=== PATIENT | male | born 1970 | race Caucasian/White ===

== ENCOUNTER 2019-11-02 12:06 | Emergency (ER) | payer MEDICAID, OTHER ==
[~2019-11-02] VITALS: Ht 182.9 cm; Wt 122.7 kg
[2019-11-02 12:24] VITALS: BP 169/109
[2019-11-02] MEDS ORDERED: HYDR28CR14 TOP (12:58)
== END 2019-11-02 13:16 | disposition home or self-care (01) ==
LOC: ER 12:07
DX: L23.9 Allergic contact dermatitis, unspecified cause (principal); K40.90 Unilateral inguinal hernia, without obstruction or gangrene, not specified as recurrent; Z79.899 Other long term (current) drug therapy
CPT/HCPCS: 99282

== ENCOUNTER 2020-04-03 10:43 | Emergency (ER) | payer MEDICAID ==
[~2020-04-03] VITALS: Ht 182.9 cm; Wt 119.0 kg
[~2020-04-03 10:43] MED LIST: HYDR28CR14 TOP
[2020-04-03 10:59] VITALS: BP 138/106
[2020-04-03 12:13] LABS: BASOPHILS % (AUTO) 0.6 % (0-1); EOSINOPHILS # (AUTO) 0.2 X10'3 (0-0.9); EOSINOPHILS % (AUTO) 2.3 % (0-6); HEMOGLOBIN 15.8 g/dl (14.0-17.9); LYMPHOCYTES # (AUTO) 1.2 X10'3 (1.1-4.8); LYMPHOCYTES % (AUTO) 16.9 % (21-51); MEAN CORPUSCULAR HEMOGLOBIN 31.4 PG (27.0-31.0); MEAN CORPUSCULAR HGB CONC 33.7 g/dL (33.0-36.5); MEAN PLATELET VOLUME 7.9 FL (7.4-10.4); MONOCYTES # (AUTO) 0.7 X10'3 (0-0.9); MONOCYTES % (AUTO) 9.4 % (2-12); NEUTROPHILS # (AUTO) 5.1 X10'3 (1.8-7.7); NEUTROPHILS % (AUTO) 70.8 % (42-75); PLATELET COUNT 315 X10'3 (140-440); RED BLOOD COUNT 5.05 X10'6 (4.70-6.10); WHITE BLOOD COUNT 7.1 X10'3 (4.5-11.0)
[2020-04-03 12:23] LABS: ALANINE AMINOTRANSFERASE 47 U/L (12-78); ALBUMIN 3.6 G/DL (3.4-5.0); ALBUMIN/GLOBULIN RATIO 0.9 (1.1-1.5); ALKALINE PHOSPHATASE 95 IU/L (46-116); ANION GAP 4 (8-16); ASPARTATE AMINO TRANSFERASE 20 U/L (10-37); BILIRUBIN,TOTAL 0.8 MG/DL (0.1-1.0); BLOOD UREA NITROGEN 15 MG/DL (7-18); BUN/CREATININE RATIO 13.4 (5.4-32.0); CHLORIDE 104 MMOL/L (99-107); CREATININE 1.12 MG/DL (0.60-1.10); GLUCOSE 274 MG/DL (70-104); POTASSIUM 4.2 MMOL/L (3.5-5.1); SODIUM 140 MMOL/L (135-145); TOTAL CARBON DIOXIDE 31.8 MMOL/L (24-32); TOTAL PROTEIN 7.5 G/DL (6.4-8.2); eGFR 69 ML/MIN
[2020-04-03 12:33] LABS: ETHANOL < 0.010 GM/DL (0.0-0.010)
--- NOTE | 2020-04-03 12:38 | NUR ---
PT WALKED OUT OF THE ROOM AND STATED THAT "I AM LEAVING ".ISABEL MILLS TRIED TO CONVINCE THE PT NOT TO LEAVE FOR FUTHER WORKUP ,PT REFUSED STARTED WALKING OUT ,CALLED ARNALDO CARREON STATED THAT PT IS NOT ON HOLD MISAEL LET THE PT WALKED OUT OF RE .PT LFT WITH WITH BELONGING IN STABLE CONDITION.
== END 2020-04-03 12:48 | disposition left against medical advice (07) ==
LOC: ER 10:44
DX: R44.0 Auditory hallucinations (principal); Z88.0 Allergy status to penicillin; Z79.899 Other long term (current) drug therapy
CPT/HCPCS: 36415; 80053; 80320; 84443; 85025; 99283

== ENCOUNTER 2020-10-13 21:41 | Emergency (ER) | payer MEDICAID ==
[~2020-10-13] VITALS: Ht 182.9 cm; Wt 136.4 kg
[2020-10-13 22:31] LABS: BASOPHILS % (AUTO) 0.6 % (0-1); EOSINOPHILS # (AUTO) 0.2 X10'3 (0-0.9); EOSINOPHILS % (AUTO) 2.5 % (0-6); HEMATOCRIT 45.6 % (42.0-52.0); HEMOGLOBIN 15.5 g/dl (14.0-17.9); LYMPHOCYTES # (AUTO) 0.9 X10'3 (1.1-4.8); LYMPHOCYTES % (AUTO) 14.6 % (21-51); MEAN CORPUSCULAR HEMOGLOBIN 31.2 PG (27.0-31.0); MEAN CORPUSCULAR VOLUME 91.6 FL (78-98); MEAN PLATELET VOLUME 8.5 FL (7.4-10.4); MONOCYTES % (AUTO) 15.7 % (2-12); NEUTROPHILS # (AUTO) 4.2 X10'3 (1.8-7.7); NEUTROPHILS % (AUTO) 66.6 % (42-75); PLATELET COUNT 271 X10'3 (140-440); RED BLOOD COUNT 4.98 X10'6 (4.70-6.10); RED CELL DISTRIBUTION WIDTH 13.2 % (11.5-14.5); WHITE BLOOD COUNT 6.4 X10'3 (4.5-11.0)
[2020-10-13 22:54] LABS: ALANINE AMINOTRANSFERASE 63 U/L (12-78); ALBUMIN 3.3 G/DL (3.4-5.0); ALBUMIN/GLOBULIN RATIO 0.9 (1.1-1.5); ALKALINE PHOSPHATASE 94 IU/L (46-116); ANION GAP 9 (8-16); ASPARTATE AMINO TRANSFERASE 30 U/L (10-37); BILIRUBIN,TOTAL 0.3 MG/DL (0.1-1.0); BLOOD UREA NITROGEN 23 MG/DL (7-18); BUN/CREATININE RATIO 20.7 (5.4-32.0); CALCIUM 7.7 MG/DL (8.5-10.1); CHLORIDE 102 MMOL/L (99-107); CREATININE 1.11 MG/DL (0.60-1.10); POTASSIUM 4.3 MMOL/L (3.5-5.1); SODIUM 135 MMOL/L (135-145); TOTAL CARBON DIOXIDE 23.9 MMOL/L (24-32); eGFR 70 ML/MIN
[2020-10-13 22:57] LABS: GLUCOSE 499 MG/DL (70-104)
[2020-10-13] MEDS ORDERED: normal saline 1000ml 1,000 ML IV ONE ×2 (23:10)
[2020-10-13 23:17] LABS: TOTAL CELLS COUNTED 100
[2020-10-13 23:18] LABS: BANDS% (MANUAL) 1 % (0-10); EOSINOPHILS % (MANUAL) 1 % (0-6); LYMPHOCYTES % (MANUAL) 15 % (21-51); MONOCYTES % (MANUAL) 7 % (2-12); NEUTROPHILS % (MANUAL) 76 % (42-75); PLATELET ESTIMATE NORMAL
[2020-10-13] MEDS ORDERED: insulin regular, human 10 units/0.1 ml syringe IV ONE (23:50)
[2020-10-13 23:51] LABS: CLARITY,URINE CLEAR (Clear); COLOR,URINE YELLOW (Yellow); GLUCOSE, URINE >=1000 mg/dl (Neg); KETONES,URINE TRACE mg/dl (Neg); LEUKOCYTE ESTERASE ,URINE NEGATIVE (Neg); NITRITES, URINE NEGATIVE (Neg); OCCULT BLOOD,URINE NEGATIVE (Neg); PROTEIN,URINE NEGATIVE (Neg); UROBILINOGEN,URINE 0.2 E.U/dL (0.2-1.0)
[2020-10-13 23:52] LABS: UA COLLECTION TYPE VOIDED
[2020-10-13 23:58] LABS: URINE AMPHETAMINE SCREEN NEGATIVE (Neg); URINE BARBITUATE SCREEN NEGATIVE (Neg); URINE BENZODIAZEPINES SCREEN NEGATIVE (Neg); URINE CANNABINOID SCREEN NEGATIVE (Neg); URINE COCAINE SCREEN NEGATIVE (Neg); URINE METHADONE SCREEN NEGATIVE (Neg); URINE OPIATE SCREEN NEGATIVE (Neg); URINE PHENCYCLIDINE SCREEN NEGATIVE (Neg)
[2020-10-14 00:16] LABS: BACTERIA,URINE NONE SEEN /HPF (Neg); RBC,URINE NONE SEEN /HPF (0-2); SQUAMOUS EPITHELIAL CELL,UR FEW /LPF (FEW); WBC,URINE NONE SEEN /HPF (0-4)
[2020-10-14] MEDS ORDERED: QUET50TA24 PO (01:30)
[2020-10-14] MEDS ORDERED: EMPA10TA PO (01:30)
[2020-10-14] MEDS ORDERED: acetaminophen 325mg tablet PO ONE ×2 (03:45→19:00)
--- NOTE | 2020-10-14 04:54 | NUR ---
pt appears to be sleeping peacefully on right side in bernal 16 bed. no s/s respiratory distress at this time.
--- NOTE | 2020-10-14 07:34 | NUR ---
PACKET FAXED TO [facility]
[2020-10-14] MEDS: QUEtiapine 25mg tablet PO SCH ×2 (08:31→20:37)
--- NOTE | 2020-10-14 14:11 | NUR ---
pt covid test came back positive. [facility] was looking at placement for him. Lencho HERNANDEZ at [facility] called and informed of this. Pt to be moved to ED main bed 7
--- NOTE | 2020-10-14 14:38 | NUR ---
on airborne precaution.
--- NOTE | 2020-10-14 14:38 | NUR ---
patient received in room 7.
--- NOTE | 2020-10-14 17:54 | NUR ---
patient reports history of cutting himself,does not report SI at this time,also states" i don't hear voices right now".Patient cont.on airborne precaution due to covid.
--- NOTE | 2020-10-14 19:35 | NUR ---
Patient resting in his stretcher- layinig on his side. Provided with tylenol as he states he has body aches. Also given full pitcher of water. Waiting to recieve dinner tray from dietary.
--- NOTE | 2020-10-14 20:46 | NUR ---
Patient has been calm and cooperative- encouraged to try to rest, head of the bed lowered.
--- NOTE | 2020-10-14 23:24 | NUR ---
RELIEVING RN FOR BREAK, PT IS SLEEPING QUIETLY ON BED
--- NOTE | 2020-10-15 03:30 | NUR ---
Patient provided with tyelnol per request and more water. Snack also brought to bedside. Patient has been complaining of body aches. Even and unlabored respirations, calm and cooperative.
[2020-10-15] MEDS: acetaminophen 325mg tablet PO PRN ×5 (03:33→23:23)
[2020-10-15] MEDS: QUEtiapine 25mg tablet PO SCH ×2 (11:00→19:33)
--- NOTE | 2020-10-15 11:00 | NUR ---
PT REQUESTED TYLENOL FOR MUSCLE PAIN. PT MEDICATED LATE D/T ACUITY OF INCOMING PT.
--- NOTE | 2020-10-15 11:55 | NUR ---
PT IS SLEEPING COMFORTABLY ON GURNEY. EASILY AWAKENS. EQUAL RISE AND FALL OF CHEST.
[2020-10-16] MEDS: acetaminophen 325mg tablet PO PRN ×3 (03:05→20:40)
[2020-10-16] MEDS: QUEtiapine 25mg tablet PO SCH ×2 (08:29→20:40)
--- NOTE | 2020-10-16 14:59 | NUR ---
Pt hiting the wall screaming he wants to eat and increase voice in his head to hurt someone. Md Lin notified and PRN ordered. Dietary contacted and will send a tray
[2020-10-16] MEDS: OLANZapine 5mg rapidly disint. tablet PO PRN (15:07)
--- NOTE | 2020-10-16 15:18 | NUR ---
First interaction with pt. Meal and Zyprexa given, pt cooperative at this time
--- NOTE | 2020-10-16 18:43 | NUR ---
Spoke with [facility] office and requested the patient be re-evaluated. The patient has been denying suicidal thoughts for the past 24 hours.
--- NOTE | 2020-10-16 20:50 | NUR ---
[facility] has evaluated the patient but felt the patient was not yet safe to discharge to home. Spoke H credit charge authorizer and requested a mental health medication evaluation. The patient can not be transferred to an acute facility 2nd to being covid positive.
--- NOTE | 2020-10-16 22:41 | NUR ---
Pt apparently frequently agitated throughout the day per dayshift RN and tech. Having multiple outbursts. Consult today with [facility] who came and evaluated pt. for possible discharge home with brother. Pt. had another outburst ("get out of here, leave me alone!!!!") during consult. [facility] will return tomorrow AM for another eval and renew [address] hold if necessary
--- NOTE | 2020-10-17 07:03 | NUR ---
patient appears to be sleeping, no signs/symptoms of distress
[2020-10-17] MEDS: QUEtiapine 25mg tablet PO SCH ×2 (08:29→20:05)
[2020-10-17] MEDS: acetaminophen 325mg tablet PO PRN ×2 (08:34→18:41)
--- NOTE | 2020-10-17 10:16 | NUR ---
ATE 100% OF BREAKFAST. NOW RESTING QUIETLY.
[2020-10-17] MEDS: OLANZapine 5mg rapidly disint. tablet PO PRN (16:03)
--- NOTE | 2020-10-18 05:20 | NUR ---
Pt slept thru night from at least 2230 hours
[2020-10-18] MEDS: OLANZapine 5mg rapidly disint. tablet PO PRN ×3 (08:15→21:07)
[2020-10-18] MEDS: acetaminophen 325mg tablet PO PRN (08:15)
[2020-10-18] MEDS: QUEtiapine 25mg tablet PO SCH ×2 (08:15→21:07)
--- NOTE | 2020-10-18 21:00 | NUR ---
PT HAD AN OUTBURST, HE IS IN THE ROOM TALKING TO HIMSELF AND WANTS TO LEAVE, WANTS HIS CLOTHES.
--- NOTE | 2020-10-18 21:11 | NUR ---
pt standing in room, verbalizing hallucination, throwing bedside furniture and yelling at said voices. pt appears agitated and requesting medication. gave pt scheduled seroquel and zyprexa early due to displayed behavior.
--- NOTE | 2020-10-19 06:53 | NUR ---
PATIENT RESTING QUIETLY, APPEARS TO BE SLEEPING. NO SIGN/SYMPTOMS OF DISTRESS.
[2020-10-19] MEDS: QUEtiapine 25mg tablet PO SCH (09:44)
[2020-10-19 09:45] VITALS: BP 135/86
--- NOTE | 2020-10-19 14:19 | NUR ---
Patient resting quietly, no signs/symptoms of distress. Lunch tray at bedside.
[2020-10-19] MEDS: OLANZapine 5mg rapidly disint. tablet PO PRN (18:42)
--- NOTE | 2020-10-19 18:45 | NUR ---
[facility] PT. WILL BE RE-EVALUATED TOMORROW BY SHANIQUA. PT. WAS STARTED ON ZYPREXA 10MG BID YESTERDAY, SO THEY WANT TO RE-EVALUATE HIM TOMORROW...
--- NOTE | 2020-10-19 19:00 | NUR ---
pt up pacing in his room, appears anxious, checked with pt. who reports his is bored and tired of having nothing to do. Responds to verbal calming and sits back down on bed.
[2020-10-19] MEDS ORDERED: olanzapine 10mg tablet PO SCH (20:00)
--- NOTE | 2020-10-19 20:30 | NUR ---
pt wringing hands, declines medications at this time.
--- NOTE | 2020-10-19 20:45 | NUR ---
pt screaming in room, advised he needs to stop yelling, he states he is concerned due to lots of activity outside of his room. Due to multiple critical pt's and understaffing RN is unable to provide calming environment for pt.
--- NOTE | 2020-10-19 21:00 | NUR ---
Pt continues to scream, rn attempts verbal de-escilation, pt is threatening to RN and states that "if you dont get out it will be bad" Charge aware. Security called to bedside.
--- NOTE | 2020-10-19 21:05 | NUR ---
Pt states "I want to leave" IV removed, bleeding controlled. Pt demands belongings, provided by security and ambulates into parking lot with steady gait stating that his brother is looking for him.
--- NOTE | 2020-10-20 00:15 | NUR ---
called [facility], notified of pt's elopment.
== END 2020-10-19 23:15 ==
LOC: ER 21:41
DX: U07.1 COVID-19 (principal); R73.9 Hyperglycemia, unspecified; F23 Brief psychotic disorder; Z88.0 Allergy status to penicillin; Z79.899 Other long term (current) drug therapy
CPT/HCPCS: 36415; 80053; 80305; 81001; 82948; 84443; 84484; 85007; 85025; 87635; 93005; 96361; 96374; 99285; C9803; J1815; J7030